=== PATIENT | male | born 1980 | race Caucasian/White ===

== ENCOUNTER 2025-01-05 09:01 | Emergency (ER) | payer MEDICAID, SELFPAY ==
[2025-01-05 09:08] VITALS: BP 117/83; PULSE 63; RESP 16; TEMP 36.3; O2SAT 99
--- NOTE | 2025-01-05 09:14 | ED_ITS ---
HPI - Abdominal Pain 2 General: Chief Complaint: Abdominal Pain Stated Complaint: Abd Pain Time Seen by Provider: 01/05/25 09:02 Source: patient and family Mode of arrival: ambulatory Limitations: no limitations History of Present Illness: Patient is a 44-year-old male presenting to the ED with several months ( since August ) of right upper quadrant pain. He describes it as a feeling of fullness and aching pain that increases after eating meals especially after fatty foods and cheese . Over the past week he has had daily episodes of vomiting with what he describes as yellow bile. He denies any bowel habit or urinary changes. He does not take any medications. No past abdominal surgeries. No fevers. No yellowing to skin/eyes. He arrives with stable vital signs. MD elicited complaint: abdominal pain Pertinent past history: none Onset (ago): month(s) Pain Consistency: constant Location: RUQ Severity: moderate Quality: fullness Radiation: none Migration to: no migration Exacerbating factors: eating (Especially fatty foods) Relieving factors: other (Laying left lateral decubitus) Associated Symptoms: Reports bloating, nausea and vomiting; Denies change in bowel habits, chills, dysuria, fever(s) and hematemesis Related Data Home Medications ?Medication ?Instructions ?Recorded ?Confirmed cyanocobalamin (B12)-cobamamide 1 tab sublingual DAILY 01/05/25 01/05/25 5,000 mcg-100 mcg sublingual tablet (B-12 Plus) dandelion root 525 mg capsule 525 mg PO DAILY 01/05/25 01/05/25 milk thistle 500 mg capsule 500 mg PO DAILY 01/05/25 0 01/05/25 naproxen sodium 220 mg tablet 660 mg PO BID PRN Pain 0 01/05/25 01/05/25 (Aleve) Previous Rx's ?Medication ?Instructions ?Recorded hydrocodone 5 mg-acetaminophen 325 1 tab PO Q6H PRN pa in #14 tabs 01/05/25 mg tablet ondansetron 4 mg disintegrating 4 mg PO Q8H PRN nausea and 01/05/25 tablet vomiting #14 tabs Allergies Allergy/AdvReac Type Severity Reaction Status Date / Time Penicillins Allergy Unknown Verified 01/05/25 09:12 Review of Systems 2 Const: Denies: fever(s), chills, body aches, change in appetite, fatigue or malaise Card: Denies: chest pain Resp: Denies: dyspnea GI: Reports: abdominal pain, nausea, vomiting and bloating; Denies: hematemesis or change in bowel habits : Denies: flank pain, difficulty urinating, dysuria or urinary frequency Musc: Denies: neck pain, back pain, extremity pain, extremity swelling or joint swelling Skin/Breast: Denies: rash, changes in skin color or jaundice Neuro: Denies: headache(s) Physical Exam 2 Const: COMMON NORMALS: no acute distress, patient oriented x3, no limitations, healthy appearing, alert and well nourished GENERAL APPEARANCE: cooperative, comfortable and well kempt NUTRITIONAL APPEARANCE: obese centrally obese HENMT: COMMON NORMALS: normocephalic and atraumatic HEAD & SCALP: normal to inspection, normocephalic and atraumatic Eye: COMMON NORMALS: Equal, round and reactive pupils present, EOMs intact bilaterally, conjunctivae normal and no scleral icterus CONJUNCTIVA: Yes conjunctivae normal PUPIL: Yes Equal, round and reactive pupils present Neck/C-Spine: COMMON NORMALS: full ROM and no lymphadenopathy Chest: COMMONS NORMALS: normal inspection of the chest Resp: COMMON NORMALS: normal respiratory effort, No retractions and clear to auscultation bilaterally AUSCULTATION: clear to auscultation bilaterally Cardio: COMMON NORMALS: regular rate, regular rhythm, S1 normal heart sound present and S2 normal heart sound present RATE: regular rate RHYTHM: r egular rhythm HEART SOUNDS: S1 normal heart sound present and S2 normal heart sound present GI: COMMON NORMALS: Normal to inspection, nondistended, normoactive bowel sounds present, Soft to palpation, no masses and no bruits INSPECTION: Yes normal to inspection AUSCULTATION: Yes normoactive bowel sounds PALPATION: Yes Soft to palpation, Yes Tenderness to palpation present (GI) (epigastric/RUQ) Details: RUQ, No Guarding due to palpation present (GI), No Rigid due to palpation and Yes Hepatomegaly present : COMMON NORMALS: Yes no CVA tenderness BLADDER/KIDNEY EXAM: Yes no CVA tenderness Back/Pelvis: COMMON NORMALS: no CVA tenderness Neuro: COMMON NORMALS: patient oriented x3 SENSORIUM/ORIENTATION: Yes alert Psych: APPEARANCE: Yes well kempt Course 2 Vital Signs: Vital signs: Vital Signs Temperature 97.4 F L 01/05/25 09:08 Pulse Rate 63 01/05/25 09:08 Respiratory Rate 16 01/05/25 09:08 Blood Pressure 117/83 01/05/25 09:08 Pulse Oximetry 99 01/05/25 09:08 MDM - Abdominal Pain Medical Decision Making Patient here for colicky right upper quadrant pain over the past several months worse with eating. He arrives with stable vital signs. He is tender to his right upper quadrant. Blood work today showing a normal white count and normal LFTs (scant elevation to ALT at 65). Lipase is normal. Gallbladder ultrasound obtained and is essentially normal. Recommend he follow-up with general surgery for discussion about elective cholecystectomy versus HIDA scan. Return to ED precautions discussed. Medical Records I reviewed the patient's medical records. Lab Data I reviewed the patient's lab results. 01/05/25 09:26 01/05/25 09:26 Labs/Radiology: Radiology Impressions Gallbladder Ultrasound 01/05/25 09:29 IMPRESSION: 1. Normal gallbladder. 2. Prominent echogenic pancreas. This can be seen with aging and fat deposition within the pancreas. 3. No fluid adjacent to the pancreas. Laboratory Results WBC 6.42 10^3/uL (3.29-11.43) 01/05/25 09: RBC 4.37 10^6/uL (3.85-5.65) 01/05/25 09:26 Hgb 14.10 g/dL (11.27-16.99) 01/05/25 09: Hct 41.9 % (37-53) 01/05/25 09: MCV 95.9 fl (82-101) 01/05/25 09:26 MCH 32.3 pg (27-33) 01/05/25 09: MCHC 33.7 g/dL (30-55) 01/05/25 09: RDW 12.9 % (12.1-15.1) 01/05/25 09: Plt Count 250 10^3/cmm (157-399) 01/05/25 09:26 MPV 9.2 fL (7.4-10.4) 01/05/25 09: Neut % (Auto) 52.8 % 01/05/25 09: Lymph % (Auto) 29.8 % 01/05/25: [place] % (Auto) 11.5 % 01/05/25 09: Eos % (Auto) 5.1 % 01/05/25 09: Baso % (Auto) 0.6 % 01/05/25 09: Neut # (Auto) 3.39 10^3/uL (1.8-7.7) 01/05/25 09: Lymph # (Auto) 1.9 10^3/uL (0.8-4.8) 01/05/25 09: [place] # (Auto) 0.7 10^3/uL (0.2-0.9) 01/05/25 09: Eos # (Auto) 0.3 10^3/uL (0.0-0.8) 01/05/25 09: Baso # (Auto) 0.0 10^3/uL (0.0-0.1) 01/05/25 09: Nucleated RBC % (auto) 0 % 01/05/25 09: Nucleated RBCs # 0.0 /100WBC 01/05/25 09: Sodium 138 mmol/L (136-145) 01/05/25 09: Potassium 4.2 mmol/L (3.5-5.1) 01/05/25 09: Chloride 103 mmol/L (98-107) 01/05/25 09: Carbon Dioxide 24 mmol/L (22-29) 01/05/25 09: Anion Gap 15.2 (5-19) 01/05/25 09: BUN 20 mg/dL (6-20) 01/05/25 09: Creatinine 0.7 mg/dL (0.7-1.2) 01/05/25 09: GFR Calculation 122.5 mL/min (90-130) 01/05/25 09: Glucose 101 mg/dL (65-115) 01/05/25: Calculated Osmolality 289 mOsm/kg (285-295) 01/05/25 09: Calcium 9.2 mg/dL (8.5-10.5) 01/05/25 09: Total Bilirubin 0.3 mg/dL (0.15-1.2) 01/05/25 09: AST 39 U/L (0-40) 01/05/25 09:26 ALT 65 U/L (0-41) H 01/05/25 09:26 Alkaline Phosphatase 78 U/L (40-130) 01/05/25 09:26 Total Protein 7.9 g/dL (6.6-8.7) 01/05/25 09:26 Albumin 4.4 g/dL (3.5-5.2) 01/05/25 09:26 Globulin 3.5 g/dL (1.3-4.6) 01/05/25 09:26 Lipase 46 U/L (13-60) 01/05/25 09:26 Urine Color Yellow (Yellow) 01/05/25 09:54 Urine Appearance Clear (CLEAR) 01/05/25 09:54 Urine pH 6.5 (5-7) 01/05/25 09:54 Ur Specific [place] 1.014 (1.005-1.030) 01/05/25 09:54 Urine Protein Negative (Negative) 01/05/25 09:54 Urine Glucose (UA) Negative (Normal) 01/05/25 09:54 Urine Ketones Negative (Negative) 01/05/25 09:54 Urine Blood Negative (Negative) 01/05/25 09:54 Urine Nitrate Negative (Negative) 01/05/25 09:54 Urine Bilirubin Negative (Negative) 01/05/25 09:54 Urine Urobilinogen 0.2 mg/dL (Negative) 01/05/25 09:54 Ur Leukocyte Esterase Negative (Negative) 01/05/25 09:54 Urine RBC 0-2 /hpf (0-2) 01/05/25 09:54 Urine WBC 0-5 /hpf (0-5) 01/05/25 09:54 Ur Squamous Epith Cells 0-5 /hpf (0-5) 01/05/25 09:54 Amorphous Sediment Not Reportable 01/05/25 09:54 Urine Bacteria None seen /hpf (NONE) 01/05/25 09:54 Hyaline Casts 0-4 /lpf H 01/05/25 09:54 All radiology interpretation(s) finalized by discharge Discharge Plan Discharge Patient Disposition: Home Clinical Impression: Biliary colic Condition: Stable Prescriptions: New hydrocodone-acetaminophen 5-325 mg tablet 1 tab PO Q6H PRN (Reason: pain) Qty: 14 0RF ondansetron 4 mg tablet,disintegrating 4 mg PO Q8H PRN (Reason: nausea and vomiting) Qty: 14 0RF No Action milk thistle 500 mg Capsule 500 mg PO DAILY Rx Instructions: give with meal/snack naproxen sodium [Aleve] 220 mg Tablet 660 mg PO BID PRN (Reason: Pain) cyanocobalamin-cobamamide [B-12 Plus] 5,000-100 mcg Tablet, Sublingual 1 tab SUBLINGUAL DAILY dandelion root 525 mg Capsule 525 mg PO DAILY Discharge Orders: Discharge ED (Routine); Ordered 01/05/25 Ordered By: Raven Moncada Patient Instructions: Biliary Colic (ED), Abdominal Pain (ED), Opioid Safety, Pain Management Activity Restrictions/Additional Instructions: Case management should contact you this week to help set you up with your outpatient follow-up with general surgery for further evaluation. As we discussed, you may return to the emergency department for worsening or uncontrollable pain, fevers, yellowing to your skin or eyes, generally feeling worse or unwell, or any other concerns you may have. Print Language: Malay Coding Level of Care Code ED Insurance Follow Up Rep for Avis Tapia
--- NOTE | 2025-01-05 09:29 | US_ITS ---
WS: [id number] RIGHT UPPER QUADRANT ULTRASOUND HISTORY: RUQ pain COMPARISON: None available. Liver: 13.8 cm in length. Normal size liver and echogenicity. No bile duct dilatation or mass. Portal Vein: Normal hepatopetal flow with monophasic waveform. Gallbladder: Normally distended gallbladder with no stones or wall thickening. CBD: 0.5 cm Pancreas: Prominent echogenic pancreas. No adjacent fluid or mass identified. Right kidney: 11.8 cm in length. Normal size and echogenicity. No hydronephrosis or mass. Aorta and IVC: Unremarkable abdominal aorta and IVC. No ascites. US/US gall bladder 33397 IMPRESSION: 1. Normal gallbladder. 2. Prominent echogenic pancreas. This can be seen with aging and fat depositio n within the pancreas. 3. No fluid adjacent to the pancreas.
[2025-01-05 09:48] LABS: Basophils % 0.6 %; Eosinophils # 0.3 10^3/uL (0.0-0.8); Eosinophils % 5.1 %; Hematocrit 41.9 % (37-53); Lymphocytes # 1.9 10^3/uL (0.8-4.8); Lymphocytes % 29.8 %; Mean Corpuscular HGB Conc 33.7 g/dL (30-55); Mean Corpuscular Hemoglobin 32.3 pg (27-33); Mean Corpuscular Volume 95.9 fl (82-101); Mean Platelet Volume 9.2 fL (7.4-10.4); Monocytes # 0.7 10^3/uL (0.2-0.9); Monocytes % 11.5 %; Neutrophils # 3.39 10^3/uL (1.8-7.7); Neutrophils % 52.8 %; Nucleated Red Blood Cells % 0 %; Platelet Count 250 10^3/cmm (157-399); Red Blood Count 4.37 10^6/uL (3.85-5.65); Red Cell Distribution Width 12.9 % (12.1-15.1); White Blood Count 6.42 10^3/uL (3.29-11.43)
[2025-01-05] MEDS: lidocaine 2% viscous 15 ML, aluminum-mag hydrox-simethicon 30 ML, sucralfate oral liq 1 GM PO (09:57)
[2025-01-05] MEDS: ondansetron 2 mg/ML SDV 2 mL 4 MG IVP (09:57)
[2025-01-05 10:05] LABS: Alanine Aminotransferase 65 U/L (0-41); Albumin Level 4.4 g/dL (3.5-5.2); Alkaline Phosphatase 78 U/L (40-130); Anion Gap 15.2 (5-19); Aspartate Amino Transferase 39 U/L (0-40); Blood Urea Nitrogen 20 mg/dL (6-20); Calcium 9.2 mg/dL (8.5-10.5); Carbon Dioxide 24 mmol/L (22-29); Chloride 103 mmol/L (98-107); Globulin 3.5 g/dL (1.3-4.6); Glomerular Filtration Rate 122.5 mL/min (90-130); Glucose 101 mg/dL (65-115); Lipase 46 U/L (13-60); Osmolality Calculated 289 mOsm/kg (285-295); Potassium 4.2 mmol/L (3.5-5.1); Sodium 138 mmol/L (136-145); Total Bilirubin 0.3 mg/dL (0.15-1.2); Total Protein 7.9 g/dL (6.6-8.7)
[2025-01-05 10:20] LABS: Bilirubin Urine Negative (Negative); Blood Urine Negative (Negative); Glucose Urine UA Negative (Normal); Ketones Urine Negative (Negative); Leukocyte Esterase Urine Negative (Negative); Nitrate Urine Negative (Negative); Protein Urine Negative (Negative); Specific Gravity, Urine 1.014 (1.005-1.030); Urine Appearance Clear (CLEAR); Urine Color Yellow (Yellow); Urobilinogen Urine 0.2 mg/dL (Negative); pH Urine 6.5 (5-7)
[2025-01-05 10:25] LABS: Add Urine Microscopic? YES; Bacteria Urine None Seen /hpf; Hyaline Casts Urine 0-4 /lpf; RBC Urine 0-2 /hpf (0-2); Squamous Epithelial Cell Urine 0-5 /hpf (0-5); WBC Urine 0-5 /hpf (0-5)
[2025-01-05 10:32] LABS: Add Urine Culture? No
[2025-01-05] MEDS: morphine 4 mg/mL SDV 1 mL IVP (11:01)
[2025-01-05 11:21] VITALS: BP 117/83; PULSE 61; O2SAT 96
--- NOTE | 2025-01-06 08:53 | DCPLANNER ---
Message sent to General Surgery for a referral-Patient here for colicky right upper quadrant pain over the past several months worse with eating. He arrives with stable vital signs. He is tender to his right upper quadrant. Blood work today showing a normal white count and normal LFTs (scant elevation to ALT at 65). Lipase is normal. Gallbladder ultrasound obtained and is essentially normal. Recommend he follow-up with general surgery for discussion about elective cholecystectomy versus HIDA scan. Return to ED precautions discussed.
== END 2025-01-05 11:21 | disposition home or self-care (01) ==
PROVIDERS: Emergency Provider Physician Assistant
DX: K80.50 Calculus of bile duct without cholangitis or cholecystitis without obstruction (principal)
CPT/HCPCS: 36415; 76705; 80053; 81001; 83690; 85025; 96374; 96375; 99285; J2270; J2405; J9999

== ENCOUNTER 2025-01-27 09:07 | Outpatient (CLI) | payer MEDICAID, SELFPAY ==
--- NOTE | 2025-01-27 10:00 | NM_ITS ---
WS: [id number] NUCLEAR MEDICINE HIDA SCAN CLINICAL INFORMATION: abdominal pain TECHNIQUE: Following intravenous administration of 8.1 mCi of technetium 99m mebrofenin, images of the abdomen were obtained over the course of 60 minutes. Next, gallbladder ejection fraction was determined by obtaining preprandial and one-hour postprandial images of the gallbladder following oral ingestion of Ensure. FINDINGS: Normal hepatic uptake at 5 minutes. Normal hepatic excretion. Gallbladder is visualized by 15 minutes. No evidence of acute cholecystitis. Normal common bile duct and small bowel activity. Gallbladder ejection fraction 65% within normal limits. No evidence of chronic cholecystitis. NM/NM hepatobiliary w phar* [id number] IMPRESSION: 1. No evidence of acute or chronic cholecystitis. 2. Gallbladder ejection fraction 65% within normal limits
== END 2025-01-27 09:08 | disposition home or self-care (01) ==
PROVIDERS: PCP Physician Assistant; Visit Provider Surgery
DX: K82.9 Disease of gallbladder, unspecified (principal)
CPT/HCPCS: 78227; A9537

== ENCOUNTER 2025-02-18 10:01 | Day surgery (SDC) | payer MEDICAID, SELFPAY ==
[2025-02-18 10:16] VITALS: BP 133/91; PULSE 66; RESP 16; TEMP 36.4; O2SAT 97; BMI 31.5
--- NOTE | 2025-02-18 10:19 | W.PM.OPSUD ---
Surgery/Procedure H&P Update DATE OF PROCEDURE: February 18, 2025 DATE H&P PERFORMED: 02/02/25 H&P UPDATE INFORMATION: I have reviewed H&P completed within last 30 days, I have examined patient prior to procedure, No changes to prior documentation, Changes to prior documentation as noted here and Risks and benefits of the procedure reviewed PLANNED PROCEDURE: Operation Date: 02/18/25 11:45 Proposed Procedures p EGD 72586, R10.13(Not Applicable) - Perry Weaver MD
[2025-02-18] MEDS: sodium chloride 0.9% 1,000 ML 15 ML IV (10:25)
--- NOTE | 2025-02-18 10:35 | ANES.PREANE2 ---
Pre-Anesthetic Assessment Height/Weight: Height 1.78 m Weight 99.79 kg Temp Pulse Resp BP Pulse Ox O2 Del Method 97.6 F 66 16 133/91 97 Room Air 02/18/25 10:16 02/18/25 10:16 02/18/25 10:16 02/18/25 10:16 02/18/25 10:16 02/18/25 10:16 Preop Diagnosis: abd pain Operation Date: 02/18/25 11:45 Proposed Procedures p EGD 38091, R10.13(Not Applicable) - Perry Weaver MD Familial anesthetic complications: none Was Beta Dereck taken within 24 hours: N/A Was Clonidine taken within 24 hours: N/A Last intake: Intake Last Liquid Date 02/17/25 Last Liquid Time 19:00 Last Solid Date 02/17/25 Last Solid Time 19:00 Social quit 4 months ago Airway Submandibular: within normal limits Cervical ROM: within normal limits Mallampati: Class II Pulmonary None reported CV/HEM None reported None reported Hepatic None reported Metabolic None reported Musc/skel None reported Neuropsych None reported Anesthetic Plan ASA status: 1 Medications/Allergies Home Medications ?Medication ?Instructions ?Recorded ?Confirmed ?Last Taken ?Type dandelion root 525 mg capsule 525 mg PO DAILY 01/05/25 02/18/25 02/15/25 History hydrocodone 5 mg-acetaminophen 325 1 tab PO Q6H PRN pain #14 tabs 01/05/25 02/18/25 Unknown Rx mg tablet milk thistle 500 mg capsule 500 mg PO DAILY 01/05/25 02/18/25 02/15/25 History naproxen sodium 220 mg tablet 660 mg PO BID PRN Pain 01/05/25 02/18/25 02/13/25 History (Aleve) ondansetron 4 mg disintegrating 4 mg PO Q8H PRN nausea and 01/05/25 02/18/25 Unknown Rx tablet vomiting #14 tabs [id number] tablet 1 tab PO DAILY 02/15/25 02/18/25 02/15/25 History Allergies Allergy/AdvReac Type Severity Reaction Status Date / Time Penicillins Allergy Unknown Verified 02/02/25 15:09 Current Medications Generic Name Dose Route Start Last Admin Trade Name Freq PRN Reason Stop Dose Admin Sodium Chloride 1,000 mls @ 15 mls/hr 02/18/25 10:11 02/18/25 10:25 Sodium Chloride 0.9% IV 02/19/25 10:10 15 mls/hr .Q24H PRN Administration COLONOSCOPY FLUIDS PFSH Anesthesia Social History Smoking and tobacco/nicotine status: former use of tobacco/nicotine
[2025-02-18 11:00] VITALS: BP 113/67; PULSE 65; RESP 18; TEMP 36.2; O2SAT 94
[2025-02-18 11:09] VITALS: BP 112/67; PULSE 61; RESP 18; TEMP 36.2; O2SAT 95
--- NOTE | 2025-02-18 11:24 | ANE.PACU2 ---
Inpatient post-anesthesia follow up: Airway intact: Yes Vital signs: Temperature 97.1 F Pulse Rate 61 Respiratory Rate 18 Blood Pressure 112/67 Pulse Oximetry 95 Oxygen Delivery Me thod Room Air Oxygen Flow Rate Fraction of Inspir ed Oxygen Hydration adequate: Yes Nausea and vomiting: No Pain level: 1 Mental status: Baseline
== END 2025-02-18 11:24 | disposition home or self-care (01) ==
PROVIDERS: PCP Physician Assistant; Visit Provider Surgery
PROC: 0DJ08ZZ Inspection of Upper Intestinal Tract, Via Natural or Artificial Opening Endoscopic (ICD-10-PCS; principal; 2025-02-18 11:45)
DX: K29.30 Chronic superficial gastritis without bleeding (principal); K31.A11 Gastric intestinal metaplasia without dysplasia, involving the antrum; B96.81 Helicobacter pylori [H. pylori] as the cause of diseases classified elsewhere; K44.9 Diaphragmatic hernia without obstruction or gangrene; K29.80 Duodenitis without bleeding; Z88.0 Allergy status to penicillin; Z87.891 Personal history of nicotine dependence
CPT/HCPCS: 43239; 88305; 88342; J2704; J3490; J7030